=== PATIENT | male | born 1975 | race Caucasian/White ===

== ENCOUNTER 2023-12-17 16:00 | Emergency (ER) | payer BC ==
[~2023-12-17] VITALS: Ht 177.8 cm; Wt 108.9 kg
[2023-12-17 16:14] LABS: BASOPHILS # (AUTO) 0.1 K/UL (0.0-0.2); BASOPHILS % (AUTO) 1.1 % (0.0-2.0); EOSINOPHILS # (AUTO) 0.1 K/uL (0.0-0.7); HEMATOCRIT 49.3 % (36.7-47.1); HEMOGLOBIN 16.9 g/dL (12.5-16.3); LYMPHOCYTES # (AUTO) 2.7 K/uL (0.8-4.8); LYMPHOCYTES % (AUTO) 26.1 % (20.5-51.5); MEAN CORPUSCULAR HEMOGLOBIN 30.9 uug (23.8-33.4); MEAN CORPUSCULAR HGB CONC 34 g/dL (32.5-36.3); MEAN CORPUSCULAR VOLUME 89.9 fL (73.0-96.2); MONOCYTES # (AUTO) 0.8 K/uL (0.1-1.30); MONOCYTES % (AUTO) 7.8 % (0.0-11.0); NEUTROPHILS # (AUTO) 6.7 K/uL (1.8-8.9); PLATELET COUNT (AUTO) 331 K/uL (152-348); RED BLOOD CELL COUNT(AUTO) 5.48 MIL/uL (4.06-5.63); RED CELL DISTRIBUTION WIDTH 13.4 % (12.1-16.2); WHITE BLOOD COUNT (AUTO) 10.4 K/uL (3.6-10.2)
[2023-12-17 16:15] LABS: DIFFERENTIAL COMMENT 1
[2023-12-17 16:21] LABS: CALCIUM 9.5 mg/dL (8.5-10.1); CARBON DIOXIDE 20 mmol/L (21-32); CHLORIDE 103 mmol/L (98-107); CREATININE 1.2 mg/dL (0.6-1.3); GLUCOSE 117 mg/dL (74-106); POTASSIUM 3.8 mmol/L (3.5-5.1); SODIUM SERUM 141 mmol/L (136-145); UREA NITROGEN, BLOOD 17 mg/dL (7-18)
[2023-12-17] MEDS: IV NORMAL SALINE 1000 ML BAG IV ONE ×3 (16:25→18:48)
[2023-12-17 16:30] LABS: ALANINE AMINOTRANSFERASE 114 U/L (16-63); ALBUMIN 3.9 g/dL (3.4-5.0); ALKALINE PHOSPHATASE 154 U/L (50-136); ASPARTATE AMINOTRANSFERASE 49 U/L (15-37); BILIRUBIN,DIRECT 0.2 mg/dL (0.0-0.2); BILIRUBIN,TOTAL 0.6 mg/dL (0.2-1.0); TOTAL PROTEIN, SERUM 7.8 g/dL (6.4-8.2)
[2023-12-17 16:32] LABS: LACTIC ACID 2.7 mmol/L (0.4-2.0)
[2023-12-17 17:19] LABS: *BILIRUBIN,URIN NEGATIVE (NEGATIVE); *BLOOD, URINE NEGATIVE (NEGATIVE); *CLARITY,URINE CLEAR (CLEAR); *COLOR,URINE YELLOW (YELLOW); *KETONES,URINE 1+ (NEGATIVE); *PROTEIN,URINE NEGATIVE (NEGATIVE); LEUKOCYTE ESTERASE ,URINE NEGATIVE (NEGATIVE); NITRITE, URINE NEGATIVE (NEGATIVE); UGLUCOSE NEGATIVE (NEGATIVE)
[2023-12-17 17:30] LABS: *AMPHETAMINE, URINE NEGATIVE (NEGATIVE); *BARBITURATE, URINE NEGATIVE (NEGATIVE); *BENZODIAZEPINE, URINE NEGATIVE (NEGATIVE); *CANNABINOID, URINE NEGATIVE (NEGATIVE); *COCCAINE, URINE NEGATIVE (NEGATIVE); *OPIATE, URINE NEGATIVE (NEGATIVE); *PHENCYCLIDINE SCREEN,URINE NEGATIVE (NEGATIVE); FENTANYL, URINE NEGATIVE (NEGATIVE)
[2023-12-17 17:38] LABS: BACTERIA,URINE NONE SEEN /HPF (NONE SEEN); RBC,URINE NONE SEEN /HPF (0-3); SQUAMOUS EPITHELIAL CELL,UR FEW /HPF (NONE SEEN); WBC,URINE 0-3 /HPF (0-3)
[2023-12-17] MEDS ORDERED: METOPROLOL TARTRATE 50 MG TABLET ONE (18:39)
[2023-12-17] MEDS ORDERED: METO25TA6 PO (18:39)
[2023-12-17] MEDS: METOPROLOL TARTRATE 50 MG TABLET PO ONE (18:48)
[2023-12-17 19:40] VITALS: BP 147/111; O2SAT 96
== END 2023-12-17 19:41 | disposition home or self-care (01) ==
LOC: ER 16:00
DX: R00.0 Tachycardia, unspecified (principal); R06.00 Dyspnea, unspecified; E86.0 Dehydration; Z79.899 Other long term (current) drug therapy
CPT/HCPCS: 99285; 96360; 71045; 80076; 80048; 85025; 85379; 85730; 84484; 36415; 93005; 83605 ×2; 80307; 81001; J7040 ×2; A4606; A4663